=== PATIENT | male | born 1970 | race Caucasian/White ===

== ENCOUNTER 2019-03-16 16:03 | Emergency (ER) | payer MEDICARE, MEDICAID ==
[~2019-03-16] VITALS: Ht 175.3 cm; Wt 62.6 kg
[2019-03-16] MEDS ORDERED: PANT40TA2 PO (16:39)
[2019-03-16] MEDS ORDERED: SUCR1ORA5 PO (16:39)
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
[2019-03-16 17:15] VITALS: BP 147/68
== END 2019-03-16 17:15 | disposition home or self-care (01) ==
LOC: EDUNIT# 16:03 → ER 16:04
DX: R13.10 Dysphagia, unspecified (principal)
CPT/HCPCS: 99282